=== PATIENT | female | born 1940 | race Caucasian/White ===

== ENCOUNTER → 2016-10-13 | Outpatient (CLI) | payer OTHER ==
[~2016-10-13] MED LIST: ATOR10TA82 PO; BACL10TA PO; BUPR100T8 PO; NAPR1TAB9 PO; SERT-234 PO; TRAZ-120 PO
[2016-10-13 17:06] LABS: BASO % 0.8 %; BASO ABS # 0.07 K/uL (0-0.2); COMPLETE YES; EOS % 3.7 %; HEMATOCRIT 41.6 % (37-47); IG% 0.4 %; LYMPH % 17.5 %; LYMPH ABS # 1.48 K/uL (1.2-3.4); MEAN CELL VOLUME 92.7 fL (80-100); MEAN CORPUSCULAR HEMOGLOBIN 29.4 pg (25-34); MEAN CORPUSCULAR HGB CONC 31.7 g/dl (32-36); MEAN PLATELET VOLUME 9.9 fL (7.4-10.4); MONO % 10.5 %; NEUT % 67.1 %; PLATELET COUNT 305 K/uL (130-400); RED BLOOD COUNT 4.49 M/uL (4.2-5.4); WHITE BLOOD COUNT 8.48 K/uL (4.8-10.8)
[2016-10-13 17:32] LABS: ALT/SGPT 28 U/L (12-78); AST/SGOT 20 U/L (15-37); BLOOD UREA NITROGEN 14 mg/dl (7-18); BUN/CREATININE RATIO 17.2 (10-20); CALCIUM 8.6 mg/dl (8.5-10.1); CARBON DIOXIDE 31 mmol/L (21-32); CHLORIDE 104 mmol/L (98-107); CHOLESTEROL 198 mg/dl (0-200); CREATININE 0.81 mg/dl (0.60-1.20); GLUCOSE 110 mg/dl (70-99); POTASSIUM 4.1 mmol/L (3.5-5.1); SODIUM 142 mmol/L (136-145)
[2016-10-13 17:43] LABS: ALB/GLOB RATIO 1.4 (0.9-2); ALKALINE PHOSPHATASE 69 U/L (45-117); CHOLESTEROL/HDL RATIO 2.2; HDL CHOLESTEROL 91 mg/dl; LDL CHOLESTEROL CALCULATED 75 mg/dl; TRIGLYCERIDES 158 mg/dl (0-150); VERY LOW DENSITY LIPOPROT CALC 32 mg/dl
--- NOTE | 2016-10-21 12:40 | CODING QUERY MEDICAL NECESSITY ---
CQSUPPORTING DIAGNOSIS NEEDED A supporting diagnosis is required for the test/procedure performed on this patient in order for us to be reimbursed by the patient's insurance. Please provide a supporting diagnosis for the following test/procedure listed below next to the test name along with your signature. *If there is no additional diagnosis for this patient that would support the following test/procedure please document that below next to the test/procedure. Test(s)/Procedure(s) that require a supporting diagnosis: DOS 10/13/16 VITAMIN D VITAMIN B12 ORDER BY KARISHMA HUSSEIN Provider Signature: Date: Thank you Maegan Buckner Health Information Management Once completed, please kindly fax back to [phone] For questions please call [phone]
== END | disposition home or self-care (01) ==
LOC: C.LABBC 15:25
PROVIDERS: ATTEND Physician Assistant Medical
DX: Z00.00 Encounter for general adult medical examination without abnormal findings (principal); R53.83 Other fatigue; E55.9 Vitamin D deficiency, unspecified; R20.0 Anesthesia of skin

== ENCOUNTER → 2017-09-13 | Outpatient (CLI) | payer OTHER ==
[2017-09-13 19:18] LABS: ALT/SGPT 22 U/L (12-78); AST/SGOT 21 U/L (15-37); BLOOD UREA NITROGEN 20 mg/dl (7-18); CALCIUM 8.6 mg/dl (8.5-10.1); CARBON DIOXIDE 30 mmol/L (21-32); CREATININE 0.89 mg/dl (0.60-1.20); GLUCOSE 76 mg/dl (70-99); POTASSIUM 4.3 mmol/L (3.5-5.1); SODIUM 139 mmol/L (136-145)
[2017-09-13 19:28] LABS: ALKALINE PHOSPHATASE 71 U/L (45-117); TOTAL PROTEIN 7.1 gm/dl (6.4-8.2)
[2017-09-14 06:36] LABS: HEMOGLOBIN A1C 5.5 % (4.5-5.6)
== END | disposition home or self-care (01) ==
LOC: C.LABBC 14:07
PROVIDERS: ATTEND Physician Assistant Medical
DX: E78.5 Hyperlipidemia, unspecified (principal); R73.9 Hyperglycemia, unspecified; G47.00 Insomnia, unspecified; R27.0 Ataxia, unspecified; G11.9 Hereditary ataxia, unspecified; E55.9 Vitamin D deficiency, unspecified

== ENCOUNTER → 2017-09-13 | Outpatient (CLI) | payer OTHER | END | disposition home or self-care (01) | LOC: C.MAMM 13:14 | PROVIDERS: ATTEND Physician Assistant Medical | DX: M85.839 Other specified disorders of bone density and structure, unspecified forearm (principal) ==

== ENCOUNTER 2025-01-11 14:48 | Inpatient (IN) ==
[2025-01-11] MEDS ORDERED: HYDROmorphone INJ 0.5 MG/0.5 ML SYR IV PRN (17:52)
[2025-01-11] MEDS ORDERED: ONDANSETRON INJ 2 MG/ML 2 ML VIAL IV PRN (18:25)
[2025-01-11] MEDS ORDERED: ACETAMINOPHEN 325 MG TAB PO PRN (18:25)
[2025-01-11] MEDS ORDERED: ALUMINUM/MAGNESIUM SUSP 30 ML UDC PO PRN (18:25)
[2025-01-11] MEDS ORDERED: MAGNESIUM HYDROXIDE SUSP 30 ML UDC PO PRN (18:25)
[2025-01-11] MEDS ORDERED: ALBUTEROL HFA 8 GM INHALER INH PRN (18:28)
[2025-01-11] MEDS ORDERED: CYCLOBENZAPRINE HCL 5 MG TAB PO PRN (18:28)
--- NOTE | 2025-01-11 18:38 | History & Physical Report ---
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 Planned for revision tomorrow AM by Dr. Azar. # Dislocation of L knee hx remote TKA -NWB LLE -pain control low dose IV hydromorphone, low dose oxycodone, acetaminophen, cyclobenzaprine PRN -consult ortho Dr. Azar, plans OR in AM for TKA revision -SCD for DVT ppx -NPO after Mn -preop labs: CBC, BMP, PT/INR. Obtain EKG # mild CAD with recent NSTEMI and trigger not clear. Potentially myocardial demand ischemia related to pulmonary issue? Had COVID about a month prior to that. Fortunately she recently had thorough cardiac evaluation for an NSTEMI a few weeks ago. Echo with normal EF, no rwmas. Had coronary angiography with only mild nonobstructive CAD. This is all reassuring. She did have a brief chest pain episode at home two days ago after the knee injury that does not sound very suspicious for angina. It occurred at rest and could have been gastrointestinal in origin. I see no medical contraindications to proceeding with planned urgent surgery to repair dislocated knee. -EKG as above -continue statin -she says she is not on an antiplatelet but according to DC summary from [facility] she should be on daily ASA 81 mg - ordered this to continue # mild persistent asthma / chronic cough -not in exacerbation -continue trelegy equivalent and prn albuterol -[facility] CXR noted increased interstitial markings. Crackles on exam and could have ILD. Try to obtain report of CTA done in ED last month. # cerebrovascular disease -continue statin, ASA # chronic hypotension - continue midodrine # mood disorder - depression. Stable -continue venlafaxine, aripiprazole, bupropion, trazodone # ABDIRASHID intolerant of CPAP - caution with sedating medications especially opioids DVT ppx - SCD tonight, postop per ortho Admission and Anticipated Discharge Date Admission Date: January 11, 2025 History of Present Illness Chief Complaint: L knee pain Primary Care Provider: Clara Hairstno PA-C 84 y/o with L TKA at least six years ago. Two days ago was sitting in her recliner chair cleaning up some things on nearby tables, rolled to right seated in recliner and felt L knee pop. L knee has been extremely painful since and unable to ambulate. Sounds like she was seen in an ED yesterday and knee immobilizer was placed. Saw ortho Dr. Azar in office this AM. Found to have dislocation of L TKA. Direct admission, planned for revision tomorrow AM. She has chronic cough, reviewed last pulmonary note by Dr. Romero in 2022. He states she has had normal PFTs and that its upper airway cough syndrome. She sa ys that she subsequently had removal of some vocal chord nodules apx two years ago. Chronic cough continues. She is on inhalers for mild asthma and symptoms are at her baseline. She has had esophageal motility problems and dysphagia, had Schatzki's ring dilated here on EGD in October. Sometimes difficulty with certain pills. I also reviewed scanned records from [facility]: A month ago she presented to ED with cough and dyspnea and found to have NSTEMI. Tn increased to max of 600s. No EKG changes. CTA was negative for PE. She was started on heparin drip and transferred to [facility]. She had Echo with normal EF 65-70% and no rwma's. She underwent coronary angiography on 12/25. I reviewed the cath report and she had mild nonobstructive diffuse CAD, no PCI was necessary. The most significant lesion was prox RCA of 40% and she had a normal LVEDP. She is quite sedentary currently. She had an episode of about 10 minutes of chest pain that radiated to throat and shoulders the other day, after the knee injury. She never had chest pain before or since. Allergies Allergy/AdvReac Type Severity Reaction Status Date / Time erythromycin base Allergy Unknown Rash - pt Verified 12/08/24 15:09 denies sulfamethoxazole Allergy Unknown Rash - pt Verified 12/08/24 15:09 [From Bactrim] denies trimethoprim [From Bactrim] Allergy Unknown Rash - pt Verified 12/08/24 15:09 denies gabapentin AdvReac Mild Dizziness Verified 12/08/24 15:09 Home Medications Medication Instructions Recorded Confirmed Type multivitamin (Daily Multi-Vitamin 1 tab PO HS 02/01/19 12/08/24 History tablet) cholecalciferol (vitamin D3) 50 1,000 units PO HS 10/30/19 12/08/24 History mcg (2,000 unit) tablet Flutter Valve #1 ea 08/29/21 12/08/24 Rx trazodone 100 mg tablet 100 mg PO HS 03/19/23 12/08/24 History venlafaxine 150 mg 150 mg PO QAM 03/19/23 12/08/24 History capsule,extended release 24 hr midodrine 2.5 mg tablet 2.5 mg PO TID 02/02/24 12/08/24 History pantoprazole 20 mg tablet,delayed 20 mg PO BID #90 tabs 09/22/24 12/08/24 Rx release acetaminophen 500 mg tablet 1,000 mg PO Q6H PRN pain/fever 09/29/24 12/08/24 History albuterol sulfate 90 mcg/actuation 2 inh inhalation Q6H PRN 09/29/24 12/08/24 History aerosol inhaler sob/wheezing aripiprazole 2 mg tablet 2 mg PO QAM 09/29/24 12/08/24 History calcium carbonate (Calcium 600) 600 mg PO HS 09/29/24 12/08/24 History cetirizine 10 mg tablet 10 mg PO QAM 09/29/24 12/08/24 History cyclobenzaprine 5 mg tablet 5 mg PO BID PRN Spasms 09/29/24 12/08/24 History ferrous sulfate 325 mg (65 mg 325 mg PO BID 09/29/24 12/08/24 History iron) tablet lidocaine 4 % topical patch 1 patch topical DAILY PRN Pain 09/29/24 12/08/24 History thiamine HCl (vitamin B1) 100 mg 100 mg PO QAM 09/29/24 12/08/24 History tablet tramadol 50 mg tablet 50 mg PO Q8H PRN Pain 09/29/24 12/08/24 History triamcinolone acetonide 0.1 % 1 applic topical BID PRN erythema 09/29/24 12/08/24 History topical cream atorvastatin 10 mg tablet 10 mg PO HS 10/13/24 12/08/24 History bupropion HCl 100 mg tablet,12 hr 100 mg PO HS 10/13/24 12/08/24 History sustained-release midodrine 5 mg tablet 5 mg PO TID 10/13/24 12/08/24 History fluticasone fur. 100 mcg-umeclid 1 inh inhalation DAILY #28 ea 12/08/24 12/08/24 Rx 62.5 mcg-vilant 25 mcg inhalat.powder (Trelegy Ellipta) meloxicam 7.5 mg tablet 7.5 mg PO DAILY #30 tabs 12/08/24 12/08/24 Rx Past Med/Surg History Problem List (Updated 01/11/25 @ 18:33 by Mona Guillaume MD) Mood disorder Knee dislocation Esophageal dysphagia Black stool Esophageal dysmotility Inversion sprain of left ankle Sprain of ankle, left Dysphagia History of rib fracture (08/29/21) left anterior 7th, 8th, and 9th rib fractures Carotid bruit Cerebrovascular disease Traumatic ecchymosis of spine Hematoma of left chest wall Falls frequently Sleep apnea Snoring Spinal stenosis, lumbar Chronic pain 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 (Acute) Cervical disc disorder with radiculopathy, unspecified cervical region (Acute) Chronic cerebral ischemia (Acute) Generalized osteoarthritis of multiple sites (Acute) Hyperglycemia (Acute) Insomnia (Acute) Lumbar radiculopathy (Acute) Microscopic hematuria (Acute) Mild persistent asthma (Acute) Osteopenia of left femoral neck (Acute) Osteopenia of left forearm (Acute) Peripheral neuropathy (Acute) Sensory ataxia (Acute) Vitamin D deficiency (Acute) Thoracic kyphosis Depression (Chronic) Dyslipidemia (Chronic) Medical History History of COVID-19 pt is unsure exact date of positive covid test (states at least 6 weeks ago -- ~mid/end august 2024 while still living at [facility]. reports she had a cough, headache and low grade fever. still has ongoing cough. following with [facility] physician, started on albuterol prn. last used inhaler 10/11/24 due to a "coughing fit and wheezing" resolved with the albuterol. Hx of vertigo Hypotension Cerebellar ataxia per medical record - pt denies. denies any memory loss, can be "forgetful at times" History of suicidal ideation hx - pt denies current ideations Hx of basal cell carcinoma Spinal stenosis Sleep apnea unable to tolerate machine. Peripheral neuropathy per medical record, pt denies Mild persistent asthma per medical record - pt denies. Dysphagia reason for the procedure History of closed head injury treated at [facility] emergency room after a fall getting out the of the shower, had a laceration on her head, no concussion. doing well currently. Chronic fatigue Former smoker Chronic cough since having covid-19 in August 2024. following with [facility] physician, started on albuterol prn. last used inhaler 10/11/24 due to a "coughing fit and wheezing" resolved with the albuterol. pt is unsure exact date of positive covid test (states at least 6 weeks ago -- ~mid/end august 2024). Depression Anxiety Osteoarthritis Chronic neck pain Degenerative disc disease Chronic back pain Osteopenia Surgical History Hx of basal cell carcinoma excision S/P epidural steroid injection History of surgery Direct microlaryngoscopy with left true vocal fold lesion biopsy-04/14/19-Dr. 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) History of tonsillectomy History of appendectomy History of colonoscopy S/P total hysterectomy History of dilatation and curettage S/P arthroscopy of shoulder right Status post left partial knee replacement History of total right knee replacement History of cataract surgery bilateral History of back surgery (~1999) lumbar Hx of cervical spine surgery "repaired 4 levels" Full ROM Family History Father Heart disease Myocardial infarction Rheumatic heart disease Cancer Head and neck Sister Osteoporosis Heart disease Hyperlipidemia Myocardial infarction Breast cancer Rheumatic heart disease Stroke Brother Alcohol abuse Heart disease Myocardial infarction Mother Ovarian cancer Lung cancer smoker Son Hearing loss Other Emphysema of lung Lung disease No family history of adverse response to anesthesia Social History Smoking Status: Former smoker Tobacco Type: Cigarettes Age Started Using Tobacco: 19; Age Quit Using Tobacco: 54; packs per day: 0.5; Cigarettes Per Day: 10 CIGS DAILY X 25 YEARS; Second Hand Exposure: No; Do You Dip or Chew Tobacco: No; Tobacco Cessation Education Requested by Patient: No Hx Alcohol Use: Yes Alcohol type: wine Alcohol Intake Frequency Comment: 1-2 drinks per day Hx Substance Use: No Preferred Language: Peruvian Communication Ability: Effective Visual Impairment: Limited Hearing Ability: Normal Gate Watch Required: No Beliefs That Will Affect Care: None marital status: Current Living Situation: Spouse and Personal Care Facility Current Living Situation Comment: [facility] current occupational status: retired Other Information That Helps Us Care for You: No Feels Safe at Home: Yes Safety Concerns: Feels Safe At This Time Childhood Exposure to Second-Hand Smoke: Yes caffeine: Yes Dental Care, Regularly: Yes Physical Activity Frequency: 3-4 Times per Week Seatbelt Use: always Sunscreen Use: Yes Assistive Devices: None and Brace/Splint/Immobilizer Assistive Devices Comment: Left Knee Review of Systems Review of Systems: All systems reviewed & are unremarkable except as noted in HPI & below Physical Exam Physical Exam: Last 24h vitals reviewed GEN: no acute distress, sitting in bed HEENT: pupils equal, sclerae anicteric, moist MM RESP: normal WOB, significant kyphosis, posterior crackles CV: reg no mrg ABD: soft/nt/nd +BT : no dupree SKIN: warm and dry, no generalized rashes EXT: wwp and no edema. L leg is in immobilizer splint NEURO: AOx person, place, and situation though mixes up a few recent details. Face symmetric, speech normal, moves 4 ext spontaneously and equally Results & Data Results & Data Vital Signs (Past 12 Hours) Vital Signs Temp Pulse Resp BP Pulse Ox O2 Del Method 01/11/25 17:26 36.5 C 83 18 135/74 93 Room Air 01/11/25 16:00 Room Air Laboratory Results pending ECG Additional Comments: pending Code Status & VTE Plan VTE Prophylaxis Plan VTE Prophylaxis will be ordered: Yes PG Care Time/CCT Total # of Minutes Spent Total Time Spent with Patient: Total time spent is greater than 50% in coordination of care (as documented) at patient's floor/unit and/or counseling patient: Coding Level of Care Code 85639 INT INP/OBS CARE 3/75MIN Diagnoses Knee dislocation S83.106A Esophageal dysmotility K22.4 Cerebrovascular disease I67.9 Sleep apnea G47.30 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
[2025-01-11 20:08] LABS: Hematocrit (blood only) 38.5 % (37.0-47.0); Hemoglobin 12.6 g/dl (12.0-16.0); Mean Corpuscular Hemoglobin 30.1 pg (25.0-34.0); Mean Corpuscular Volume 92.1 fL (80.0-100.0); Platelet Count 219 K/uL (130-400); RDW Standard Deviation 44.7 fL (36.4-46.3); Red Blood Count 4.18 M/uL (4.20-5.40); White Blood Count 10.69 K/ul (4.8-10.8)
[2025-01-11 20:23] LABS: Anion Gap 5 (3-11); Blood Urea Nitrogen 22 mg/dl (6-23); Calcium 8.9 mg/dl (8.6-10.3); Carbon Dioxide 27 mmol/L (21-32); Chloride 108 mmol/L (98-107); Glucose 118 mg/dl (70-99(Fasting)); Potassium 4.3 mmol/L (3.5-5.1); Sodium 140 mmol/L (136-145)
[2025-01-11 20:34] LABS: INR 1.0 (0.9-1.1); Partial Thromboplastin Time 27 Seconds (21-31); Prothrombin Time 11.1 Seconds (9.0-12.0)
[2025-01-11] MEDS ORDERED: MIDODRINE HCL 2.5 MG TAB PO SCH (21:00)
[2025-01-11] MEDS: MELATONIN 3 MG TAB PO PRN (21:53)
[2025-01-11] MEDS: MIDODRINE HCL 2.5 MG TAB PO SCH (21:55)
[2025-01-11] MEDS: ATORVASTATIN 10 MG TAB PO SCH (21:55)
[2025-01-12] MEDS ORDERED: ROPIVACAINE 0.5% 5 MG/ML 30 ML VIAL ONE (06:33)
[2025-01-12] MEDS ORDERED: BUPIVACAINE 0.5 % 5 MG/1 ML PF 10ML VIAL ONE (06:33)
[2025-01-12] MEDS ORDERED: EPINEPHrine INJ 1 MG/ML AMP ONE (06:34)
[2025-01-12] MEDS: VENLAFAXINE HCL XR 150 MG CAPXR PO SCH (08:17)
[2025-01-12] MEDS: FLUTICASONE FUROATE 100MCG 14 PUFFS/INHALER INH SCH (08:18)
[2025-01-12] MEDS: UMECLIDINIUM/VILANTEROL 62.5/25MCG 7 PUFFS/INHALER INH SCH (08:18)
--- NOTE | 2025-01-12 08:49 | Orthopedic Consultation ---
Date of Service January 12, 2025 Assessment & Plan (1) Prosthetic knee implant failure: * Case/imaging reviewed and discussed with Dr Azar * Recommend OR today for revision total knee arthroplasty * Weight bearing status: NWB pre-op * Maintain knee immobilizer * NPO for OR today * Pain control * Disposition: TBD * Remainder care per primary team * Will continue to follow History of Present Illness Reason for Consultation: Left knee pain Requesting Physician: . Attending Physician: Mona Guillaume MD .Patient is a 84y/o female with left knee pain. PMH including cerebellar ataxia secondary to alcohol, anxiety, asthma. Well-known to orthopedic team with surgical history including right total knee and left partial knee replacements. He saw Dr. Azar in office yesterday secondary to left knee pain ongoing for approximately 2 days, reports she was working in her house when she twisted the knee and felt a pop and has had persistent knee pain and difficulty ambulating since. Office examination and imaging findings consistent with displaced polyethylene liner. Direct admission to hospital yesterday for planned revision knee arthroplasty today with Dr. Azar. At time of exam patient lying comfortably in bed, no acute distress. Knee immobilizer in place. Denies tingling or numbness of the left lower extremity. Allergies Allergy/AdvReac Type Severity Reaction Status Date / Time erythromycin base Allergy Unknown Rash - pt Verified 12/08/24 15:09 denies sulfamethoxazole Allergy Unknown Rash - pt Verified 12/08/24 15:09 [From Bactrim] denies trimethoprim [From Bactrim] Allergy Unknown Rash - pt Verified 12/08/24 15:09 denies gabapentin AdvReac Mild Dizziness Verified 12/08/24 15:09 Home Medications Medication Instructions Recorded Confirmed Type multivitamin (Daily Multi-Vitamin 1 tab PO HS 02/01/19 12/08/24 History tablet) cholecalciferol (vitamin D3) 50 1,000 units PO HS 10/30/19 12/08/24 History mcg (2,000 unit) tablet Flutter Valve #1 ea 08/29/21 12/08/24 Rx trazodone 100 mg tablet 100 mg PO HS 03/19/23 12/08/24 History venlafaxine 150 mg 150 mg PO QAM 03/19/23 12/08/24 History capsule,extended release 24 hr midodrine 2.5 mg tablet 2.5 mg PO TID 02/02/24 12/08/24 History pantoprazole 20 mg tablet,delayed 20 mg PO BID #90 tabs 09/22/24 12/08/24 Rx release acetaminophen 500 mg tablet 1,000 mg PO Q6H PRN pain/fever 09/29/24 12/08/24 History albuterol sulfate 90 mcg/actuation 2 inh inhalation Q6H PRN 09/29/24 12/08/24 History aerosol inhaler sob/wheezing aripiprazole 2 mg tablet 2 mg PO QAM 09/29/24 12/08/24 History calcium carbonate (Calcium 600) 600 mg PO HS 09/29/24 12/08/24 History cetirizine 10 mg tablet 10 mg PO QAM 09/29/24 12/08/24 History cyclobenzaprine 5 mg tablet 5 mg PO BID PRN Spasms 09/29/24 12/08/24 History ferrous sulfate 325 mg (65 mg 325 mg PO BID 09/29/24 12/08/24 History iron) tablet lidocaine 4 % topical patch 1 patch topical DAILY PRN Pain 09/29/24 12/08/24 History thiamine HCl (vitamin B1) 100 mg 100 mg PO QAM 09/29/24 12/08/24 History tablet tramadol 50 mg tablet 50 mg PO Q8H PRN Pain 09/29/24 12/08/24 History triamcinolone acetonide 0.1 % 1 applic topical BID PRN erythema 09/29/24 12/08/24 History topical cream atorvastatin 10 mg tablet 10 mg PO HS 10/13/24 12/08/24 History bupropion HCl 100 mg tablet,12 hr 100 mg PO HS 10/13/24 12/08/24 History sustained-release midodrine 5 mg tablet 5 mg PO TID 10/13/24 12/08/24 History fluticasone fur. 100 mcg-umeclid 1 inh inhalation DAILY #28 ea 12/08/24 12/08/24 Rx 62.5 mcg-vilant 25 mcg inhalat.powder (Trelegy Ellipta) meloxicam 7.5 mg tablet 7.5 mg PO DAILY #30 tabs 12/08/24 12/08/24 Rx Past Med/Surg History Problem List (Updated 01/12/25 @ 08:48 by Curt Ruvalcaba PA-C) Prosthetic knee implant failure Mood disorder Knee dislocation Esophageal dysphagia Black stool Esophageal dysmotility Inversion sprain of left ankle Sprain of ankle, left Dysphagia History of rib fracture (08/29/21) left anterior 7th, 8th, and 9th rib fractures Carotid bruit Cerebrovascular disease Traumatic ecchymosis of spine Hematoma of left chest wall Falls frequently Sleep apnea Snoring Spinal stenosis, lumbar Chronic pain 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 (Acute) Cervical disc disorder with radiculopathy, unspecified cervical region (Acute) Chronic cerebral ischemia (Acute) Generalized osteoarthritis of multiple sites (Acute) Hyperglycemia (Acute) Insomnia (Acute) Lumbar radiculopathy (Acute) Microscopic hematuria (Acute) Mild persistent asthma (Acute) Osteopenia of left femoral neck (Acute) Osteopenia of left forearm (Acute) Peripheral neuropathy (Acute) Sensory ataxia (Acute) Vitamin D deficiency (Acute) Thoracic kyphosis Depression (Chronic) Dyslipidemia (Chronic) Medical History History of COVID-19 pt is unsure exact date of positive covid test (states at least 6 weeks ago -- ~mid/end august 2024 while still living at [facility]. r eports she had a cough, headache and low grade fever. still has ongoing cough. following with [facility] physician, started on albuterol prn. last used inhaler 10/11/24 due to a "coughing fit and wheezing" resolved with the albuterol. Hx of vertigo Hypotension Cerebellar ataxia per medical record - pt denies. denies any memory loss, can be "forgetful at times" History of suicidal ideation hx - pt denies current ideations Hx of basal cell carcinoma Spinal stenosis Sleep apnea unable to tolerate machine. Peripheral neuropathy per medical record, pt denies Mild persistent asthma per medical record - pt denies. Dysphagia reason for the procedure History of closed head injury treated at [facility] emergency room after a fall getting out the of the shower, had a laceration on her head, no concussion. doing well currently. Chronic fatigue Former smoker Chronic cough since having covid-19 in August 2024. following with [facility] physician, started on albuterol prn. last used inhaler 10/11/24 due to a "coughing fit and wheezing" resolved with the albuterol. pt is unsure exact date of positive covid test (states at least 6 weeks ago -- ~mid/end august 2024). Depression Anxiety Osteoarthritis Chronic neck pain Degenerative disc disease Chronic back pain Osteopenia Surgical History Hx of basal cell carcinoma excision S/P epidural steroid injection History of surgery Direct microlaryngoscopy with left true vocal fold lesion biopsy-04/14/19-Dr. 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) History of tonsillectomy History of appendectomy History of colonoscopy S/P total hysterectomy History of dilatation and curettage S/P arthroscopy of shoulder right Status post left partial knee replacement History of total right knee replacement History of cataract surgery bilateral History of back surgery (~1999) lumbar Hx of cervical spine surgery "repaired 4 levels" Full ROM Family History Father Heart disease Myocardial infarction Rheumatic heart disease Cancer Head and neck Sister Osteoporosis Heart disease Hyperlipidemia Myocardial infarction Breast cancer Rheumatic heart disease Stroke Brother Alcohol abuse Heart disease Myocardial infarction Mother Ovarian cancer Lung cancer smoker Son Hearing loss Other Emphysema of lung Lung disease No family history of adverse response to anesthesia Social History Smoking Status: Former smoker Tobacco Type: Cigarettes Age Started Using Tobacco: 19; Age Quit Using Tobacco: 54; packs per day: 0.5; Cigarettes Per Day: 10 CIGS DAILY X 25 YEARS; Second Hand Exposure: No; Do You Dip or Chew Tobacco: No; Tobacco Cessation Education Requested by Patient: No Hx Alcohol Use: Yes Alcohol type: wine Alcohol Intake Frequency Comment: 1-2 drinks per day Hx Substance Use: No Preferred Language: Mongolian Communication Ability: Effective Visual Impairment: Limited Hearing Ability: Normal Vegetable Trimmer Required: No Beliefs That Will Affect Care: None marital status: Current Living Situation: Spouse and Personal Care Facility Current Living Situation Comment: [facility] current occupational status: retired Other Information That Helps Us Care for You: No Feels Safe at Home: Yes Safety Concerns: Feels Safe At This Time Childhood Exposure to Second-Hand Smoke: Yes caffeine: Yes Dental Care, Regularly: Yes Physical Activity Frequency: 3-4 Times per Week Seatbelt Use: always Sunscreen Use: Yes Assistive Devices: None and Brace/Splint/Immobilizer Assistive Devices Comment: Left Knee Review of Systems All systems reviewed & are unremarkable except as noted in HPI & below. Physical Exam . * General: Alert and oriented, no acute distress * Constitutional: well-developed, well-nourished. * Respiratory: Normal respiratory effort, no distress * Gastrointestinal: No tenderness to palpation, no rigidity or guarding. * Skin: No rash or lesion. * Neurologic: Grossly normal * Musculoskeletal: Left knee knee immobilizer in place, removed for exam. Well- healed arthroplasty, otherwise no overlying skin abnormalities incision. TTP diffusely medial knee joint line, anterior knee region, distal thigh. Otherwise no tenderness of the proximal thigh, lower leg, foot/ankle. ROM knee not assessed. AROM foot/ankle intact. Sensation intact plantar/dorsal foot. Brisk capillary refill. Results & Data Results & Data Laboratory Results . Diagnostic Findings . PG Care Time/CCT Total # of Minutes Spent Total Time Spent with Patient: Total time spent is greater than 50% in coordination of care (as documented) at patient's floor/unit and/or counseling patient: Coding [place] [address] IN/OBS CONSULT LVL 5,80M Patient Type Established History Problem Focused Exam Problem Focused Medical Decision Making High Complexity Diagnoses Prosthetic knee implant failure T84.018A; Z96.659
--- NOTE | 2025-01-12 11:17 | History & Physical Bridge Note ---
Date of Service January 12, 2025 History & Physical Bridge Note I have examined the patient, reviewed the History & Physical and in the interval since the performance of the History & Physical I have noted the following changes of clinical significance: no changes noted
[2025-01-12] MEDS: HYDROmorphone INJ 0.5 MG/0.5 ML SYR IV PRN (12:09)
[2025-01-12] MEDS ORDERED: PROPOFOL IV EMULSION 10 MG/ML 100 ML VIAL IV ONE (12:30)
[2025-01-12] MEDS ORDERED: ONDANSETRON INJ 2 MG/ML 2 ML VIAL ONE (12:30)
[2025-01-12] MEDS: LACTATED RINGER'S 1,000 ML IV SCH (12:49)
[2025-01-12] MEDS ORDERED: MIDAZOLAM HCL 1 MG/ML 2ML VIAL ONE (12:54)
--- NOTE | 2025-01-12 13:00 | Anesthesiology Consultation ---
Date of Service January 12, 2025 Assessment & Plan Chart Review Chart Review: Acceptable Risk for Surgery and Patient NOT seen in Pre Admission Testing Consults Requested none ASA ASA3 Proposed Anesthesia Anesthesia Type: General Regional Regional Laterality: Left Site: Adductor Canal Risk / Benefits Reviewed With: PT / POA / Parent / Guardian, Accepts Plan and Informed Consent Obtained History Surgery Operation Date: 01/12/25 12:30 Proposed Procedures p Left Total Knee Revision - Sukh Azar MD Height/Weight Height: 5 ft Weight: 50 kg Allergies Allergy/AdvReac Type Severity Reaction Status Date / Time erythromycin base Allergy Unknown Rash - pt Verified 01/12/25 12:31 denies sulfamethoxazole Allergy Unknown Rash - pt Verified 01/12/25 12: [From Bactrim] denies trimethoprim [From Bactrim] Allergy Unknown Rash - pt Verified 01/12/25 12: denies gabapentin AdvReac Mild Dizziness Verified 01/12/25 12:31 Medications Home Medications Medication Instructions Recorded Confirmed Last Taken cholecalciferol (vitamin D3) 50 1,000 units PO HS 10/30/19 01/12/25 10/17/24 mcg (2,000 unit) tablet Flutter Valve #1 ea 08/29/21 12/08/24 Unknown trazodone 100 mg tablet 100 mg PO 03/19/23 01/12/25 10/17/24 venlafaxine 150 mg 150 mg PO QAM 03/19/23 01/12/25 10/17/24 capsule,extended release 24 hr midodrine 2.5 mg tablet 2.5 mg PO TID 02/02/24 01/12/25 10/17/24 pantoprazole 20 mg tablet,delayed 20 mg PO BID #90 tabs 09/22/24 01/12/25 10/17/24 release acetaminophen 500 mg tablet 1,000 mg PO Q6H PRN pain/fever 09/29/24 01/12/25 Unknown albuterol sulfate 90 mcg/actuation 2 inh inhalation Q6H PRN 09/29/24 01/12/25 Unknown aerosol inhaler sob/wheezing aripiprazole 2 mg tablet 2 mg PO QAM 09/29/24 01/12/25 10/17/24 calcium carbonate (Calcium 600) 600 mg PO HS 09/29/24 01/12/25 10/17/24 cetirizine 10 mg tablet 10 mg PO QAM 09/29/24 01/12/25 10/17/24 ferrous sulfate 325 mg (65 mg 325 mg PO BID 09/29/24 01/12/25 10/17/24 iron) tablet thiamine HCl (vitamin B1) 100 mg 100 mg PO QAM 09/29/24 01/12/25 10/17/24 tablet tramadol 50 mg tablet 50 mg PO Q8H PRN Pain 09/29/24 01/12/25 Unknown triamcinolone acetonide 0.1 % 1 applic topical BID PRN erythema 09/29/24 01/12/25 Unknown topical cream atorvastatin 10 mg tablet 10 mg PO HS 10/13/24 01/12/25 10/17/24 bupropion HCl 100 mg tablet,12 hr 100 mg PO HS 10/13/24 01/12/25 10/17/24 sustained-release midodrine 5 mg tablet 5 mg PO TID 10/13/24 01/12/25 10/17/24 fluticasone fur. 100 mcg-umeclid 1 inh inhalation DAILY #28 ea 12/08/24 01/12/25 Unknown 62.5 mcg-vilant 25 mcg inhalat.powder (Trelegy Ellipta) aspirin 81 mg tablet,delayed 81 mg PO DAILY 01/12/25 01/12/25 Unknown release multivitamin (Daily-Jorgito tablet) 1 tab PO DAILY 01/12/25 01/12/25 Unknown Active Medications Generic Name Dose Route Start Last Admin Trade Name Freq PRN Reason Stop Dose Admin Aripiprazole 2 mg 01/12/25 09:00 01/12/25 08:17 Aripiprazole 2 Mg Tab PO 02/11/25 08:59 2 mg QAM EWA Administration Atorvastatin Calcium 10 mg 01/11/25 21:00 01/11/25 21:55 Atorvastatin 10 Mg Tab PO 02/10/25 20:59 10 mg HS EWA Administration Bupropion HCl 100 mg 01/11/25 21:00 01/11/25 21:55 Bupropion Sr 100 Mg Tabcr PO 02/10/25 20:59 100 mg HS EWA Administration Fluticasone Furoate 1 puffs 01/12/25 09:00 01/12/25 08:18 Fluticasone Furoate 100mcg 14 Puffs/Inhaler INH 02/11/25 08:59 1 puffs DAILY EWA Administration Hydromorphone HCl 0.25 mg 01/11/25 19:14 01/12/25 12:09 Hydromorphone Inj 0.5 Mg/0.5 Ml Syr IV 01/25/25 17:51 0.25 mg Q4H PRN Administration Severe Pain (Scale 7, 8, 9,10) Lactated Ringer's 1,000 mls @ 15 mls/hr 01/12/25 12:45 01/12/25 12:49 Lr IV 01/15/25 12:44 15 mls/hr .Q24H EWA Administration Melatonin 3 mg 01/11/25 18:25 01/11/25 21:53 Melatonin 3 Mg Tab PO 02/10/25 18:24 3 mg HS PRN Administration Insomnia Midodrine 7.5 mg 01/11/25 21:00 01/12/25 08:16 Midodrine Hcl 2.5 Mg Tab PO 02/10/25 20:59 7.5 mg TID EAW Administration Pantoprazole Sodium 40 mg 01/12/25 09:00 01/12/25 08:17 Pantoprazole 40 Mg Tab PO 02/11/25 08:59 40 mg QAM EWA Administration Tramadol HCl 50 mg 01/11/25 19:15 01/11/25 21:54 Tramadol Hcl 50 Mg Tablet PO 02/10/25 17:51 50 mg Q4H PRN Administration Mild Pain (Scale 1, 2, 3) Trazodone HCl 100 mg 01/11/25 21:00 01/11/25 21:53 Trazodone Hcl 100 Mg Tab PO 02/10/25 20:59 100 mg HS EWA Administration Umeclidinium/Vilanterol 1 puffs 01/12/25 09:00 01/12/25 08:18 Umeclidinium/Vilanterol 62.5/25mcg 7 Puffs/Inhaler INH 02/11/25 08:59 1 puffs DAILY EWA Administration Venlafaxine HCl 150 mg 01/12/25 09:00 01/12/25 08:17 Venlafaxine Hcl Xr 150 Mg Capxr PO 02/11/25 08:59 150 mg QAM EWA Administration NPO Date Last Intake of Fluids: 01/12/25 Time Last Intake of Fluids: 12:09 Last Intake of Fluids Comment: sip water with pain med Date Last Intake of Solids: 01/11/25 Time Last Intake of Solids: 18:00 Past Medical History Medical History History of COVID-19 pt is unsure exact date of positive covid test (states at least 6 weeks ago -- ~mid/end august 2024 while still living at [facility]. reports she had a cough, headache and low grade fever. still has ongoing cough. following with [facility] physician, started on albuterol prn. last used inhaler 10/11/24 due to a "coughing fit and wheezing" resolved with the albuterol. Hx of vertigo Hypotension Cerebellar ataxia per medical record - pt denies. denies any memory loss, can be "forgetful at times" History of suicidal ideation hx - pt denies current ideations Hx of basal cell carcinoma Spinal stenosis Sleep apnea unable to tolerate machine. Peripheral neuropathy per medical record, pt denies Mild persistent asthma per medical record - pt denies. Dysphagia reason for the procedure History of closed head injury treated at [facility] emergency room after a fall getting out the of the shower, had a laceration on her head, no concussion. doing well currently. Chronic fatigue Former smoker Chronic cough since having covid-19 in August 2024. following with [facility] physician, started on albuterol prn. last used inhaler 10/11/24 due to a "coughing fit and wheezing" resolved with the albuterol. pt is unsure exact date of positive covid test (states at least 6 weeks ago -- ~mid/end august 2024). Depression Anxiety Osteoarthritis Chronic neck pain Degenerative disc disease Chronic back pain Osteopenia ASCVD Ao CAD mild disease Exercise / Class Metabolic Activity III < 4 Walking/Shop/Light housework Past Family History Family History Father Heart disease Myocardial infarction Rheumatic heart disease Cancer Head and neck Sister Osteoporosis Heart disease Hyperlipidemia Myocardial infarction Breast cancer Rheumatic heart disease Stroke Brother Alcohol abuse Heart disease Myocardial infarction Mother Ovarian cancer Lung cancer smoker Son Hearing loss Other Emphysema of lung Lung disease No family history of adverse response to anesthesia Past Surgical History Surgical History Hx of basal cell carcinoma excision S/P epidural steroid injection History of surgery Direct microlaryngoscopy with left true vocal fold lesion biopsy-04/14/19-Dr. 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) History of tonsillectomy History of appendectomy History of colonoscopy S/P total hysterectomy History of dilatation and curettage S/P arthroscopy of shoulder right Status post left partial knee replacement History of total right knee replacement History of cataract surgery bilateral History of back surgery (~1999) lumbar Hx of cervical spine surgery "repaired 4 levels" Full ROM Past Anesthesia History No Hx of Anesthesia Complications and No Family Hx of Anesthesia Complications History of PONV No Hx of PONV and No Hx of Motion Sickness Social History Smoking Status: Former smoker tobacco type: cigarettes Smoking cigarettes per day: 10 CIGS DAILY X 25 YEARS Do You Dip or Chew Tobacco: No Hx Alcohol Use: Yes Alcohol type: wine alcohol intake frequency: holidays/special occasions only Hx Substance Use: No substance use type: does not use Physical Exam Vital Signs Last Vital Signs Temp 37 C 01/12/25 12:32 Pulse 85 01/12/25 12:32 Resp 20 01/12/25 12:32 BP 98/56 L 01/12/25 12:32 Pulse Ox 92 01/12/25 12:32 O2 Del Method Room Air 01/12/25 12:32 Constitutional no acute distress and not cachectic ENMT Mouth: no dentition abnormality Thyromental Distance: < 3.5 Finger Breadths Mallampati Class: II Neck normal visual inspection, trachea midline and + limited neck extension Respiratory normal respiratory effort Auscultation: + diminished lung sounds Cardiovascular Rate/Rhythm: regular rate and regular rhythm Heart Sounds: no murmur Vessels: no carotid bruit Musculoskeletal Spine: + scoliosis; normal cervical ROM and no pain with cervical ROM Extremities: + limited ROM of extremities; + extremities abnormal to inspection Neurologic moves all extremities Motor/Sensory: + sensory deficit Psychiatric Orientation: alert and oriented x 3 Testing Laboratory Results 01/11/25 19:52 01/11/25 19:52 PT 11.1 Seconds (9.0-12.0) 01/11/25 19:52 INR 1.0 (0.9-1.1) 09/04/25 19:52 APTT 27 Seconds (21-31) 01/11/25 19:52 Blood Type A Negative 01/12/25 06:52 Antibody Screen NEGATIVE 01/12/25 06:52 Electrocardiogram Date: 01/11/25 Findings: + NSR @ (@ 88;low voltage QRS;) Chest X-Ray Date: 09/29/24 Findings: + NAD, + cardiomegaly and + other (mild scoliosis) Cardiac Catheterization Date: 12/25/24 Findings: + RCA (prox 40%;Mid 30%), + LMA (LAD-mild disease) and + LCX (mild disease); no valve disease Other Testing carotid U/S 09/30/2022-< 50% B/L ICA's
[2025-01-12] MEDS ORDERED: LIDOCAINE 2% 2 ML VIAL/AMP(20MG/ML) INFIL ONE (13:21)
[2025-01-12] MEDS ORDERED: PROPOFOL IV EMULSION 10 MG/ML 20 ML VIAL IV ONE (13:21)
[2025-01-12] MEDS ORDERED: KETAMINE HCL 10MG/ML SYR ONE (14:34)
[2025-01-12] MEDS: ROPIVACAINE 0.5% HCL/PF 246 MG, Ketorolac (*for OR use only*) 30 MG, EPINEPHrine 30MG/3... INFIL SCH (14:41)
[2025-01-12] MEDS: VANCOMYCIN HCL 1000MG/20ML VIAL ONE (14:41)
[2025-01-12] MEDS: TRANEXAMIC ACID / 0.7% NACL 1,000 MG/100 ML BAG IV ONE (15:24)
--- NOTE | 2025-01-12 16:35 | Operative Report ---
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 She underwent a left partial knee replacement 17 years ago. She did quite well and then just 2 days ago she was sitting in Twisted her knee and sustained a torquing motion on it. She had acute onset of pain. She was seen and diagnosed with a polyethylene dislocation radiographically. The patient indicated for revision surgery. We discussed both polyethylene exchange versus conversion to a total knee replacement. C onsidering that she has developed some degree of progressive arthritis in her knee along with her inability to likely tolerate additional surgeries elected to proceed with a full left knee revision in hopes of assuring that she did not need any further surgery on this knee. Description of Procedure Operative implants consist of: 1 Biomet Vanguard size 60 left posterior stabilized femoral component. 2. Biomet size 67 tibial tray with a 10 mm x 80 mm stem extension. 3. 18 mm PS plus polyethylene insert. 4. 28 x 8 all poly patella. Patient was taken operative 5, placed on the operative table in supine position. All contact areas were appropriately padded. IV antibiotics provided by anesthesia team. A general anesthetic was implemented. A Sood catheter was placed in a sterile fashion. Left atrium was then placed. The left lower extremity was then scrubbed with Hibiclens, prepped with ChloraPrep and draped in usual sterile fashion. The left leg was elevated and exsanguinated using an Esmarch and tourniquet placed at 300 mmHg. An anterior approach to the left knee was then performed using a previous incision and extended proximally. Sharp dissection THE subcutaneous tissue down to the extensor mechanism. A medial parapatellar arthrotomy incision made. Dissection was carried out medially. Synovectomy of suprapatellar pouch and medial lateral gutters were performed. Patella was mobilized. Lateral patellofemoral ligament was released. The patella subluxated laterally and the knee was flexed. The posterior distal femur. The ACL PCL and then releasing the distal femur and the tibia subluxated. The tibial tray was then removed. We used a small thin sawblade followed by stacked osteotome technique to remove the tibial tray. It was not loose. The tibial eminence was resected. The cutting guide was placed in the proximal tibial cut was made to MuGard millimeter from the medial side. The tibia was sized to a size 63. The tibial tray was pinned in place. The drill was then 0.3 discrete defect proximal to the tibial tray. I reamed up to a size 12. A 10 mm x 80 mm size 63 tray assembled with a stem. The tray was placed and fit nicely. Attention the femur. The distal femur was sharply opened and intramedullary canal was suctioned to the left 5 the valgus cutting guide was placed. The distal femur cutting block holes/pins were then placed. At that use the small thin sawblade along with a stacked osteotome technique to remove the femoral component. The distal femoral cut was then made. The femur was then sized to a size 60. AP cutting block and pinned parallel to the operative. Anterior, anterior chamfer, posterior, posterior chamfer cuts were made. The box cutting guide was placed and adjustment box Pozniak. Reminyl ER miscarriage size. The osteophytes taken off the posterior aspect femur. I then placed the femoral component. We then trialed the knee and the 18 mm insert. Most appropriate. I did elect to use a PS plus insert just to maximize her stability. Attention drawn to the patella. Soft tissue. Patella thickness measured 20 mm in thickness 12. [id number] 28 patella. The locals were drilled for 28 patella. Lateral x-rays removed. Patella button was placed. Knee was taken through range of motion patella tracked nicely with no Froment's test. Attention turned to placement of the components. All trial components of bone plug was placed to the distal femur limit blood loss. Did also place a bone plug and today.Palacos G cement was mixed with an additional gram of vancomycin. The femoral component was cemented placed followed by the tibial tray. The knee was brought control cement. Final cement check was then performed. Pericapsular tissues were injected with 2 mg of Orthovisc patient did receive 1 g of tranexamic acid. The tourniquet was then let down for total time 83 minutes. Hemostasis assured with electrocautery. Wound was again irrigated extensive [place] closed with combination of PDS suture Vicryl suture to fixate fascia. Extensor mechanism Intact with Subcutaneous Closure to the Suture in a Buried Interrupted Fashion Skin Was Closed Skin Sarah. Leg Was Then Cleaned and Dried and Covered Roger Bandage Were Applied. Patient Then Transferred to Recovery in Stable Condition. Patient Tolerated Suture Well and There Were No Complications. Tor Physician Medical Safety Director, Was Present for the Entire Procedure. Assistance Was Required for Proper Patient Positioning, Prepping and, Surgical Exposure, Ankle Details of the Operation, Placement of Implants, Closure of the Incision Site, Placement of Postoperative Sterile Bandage. I attest to the content of the Intraoperative Record and any orders documented therein. Any exceptions are noted below.
--- NOTE | 2025-01-12 17:10 | Anesthesiology Progress Note ---
Date of Service January 12, 2025 Anesthesia Post Procedure Vital Signs Vital Signs: Temp Pulse Pulse Resp BP Pulse Ox O2 Del Method 01/12/25 17:05 36.4 C L 96 H 18 137/63 96 Nasal Cannula 01/12/25 16:55 96 H 16 138/64 97 Nasal Cannula 01/12/25 16:45 100 H 20 146/68 H 95 Room Air 01/12/25 16:35 99 H 15 111/71 99 Oxymask 01/12/25 16:25 36.7 C 108 H 14 115/96 94 Oxymask 01/12/25 12:32 37 C 85 20 98/56 L 92 Room Air 01/12/25 11:38 36.7 C 81 14 111/62 96 Room Air 01/12/25 07:41 36.7 C 83 14 101/59 L 93 Room Air 01/11/25 22:27 37.1 C 95 H 16 103/59 L 92 Room Air 01/11/25 19:27 Room Air 01/11/25 17:26 36.5 C 83 18 135/74 93 Room Air O2 Flow Rate 01/12/25 17:05 2 01/12/25 16:55 2 01/12/25 16:45 01/12/25 16:35 8 01/12/25 16:25 8 01/12/25 12:32 01/12/25 11:38 01/12/25 07:41 01/11/25 22:27 01/11/25 19:27 01/11/25 17:26 Pain Intensity Left Knee: Pain Intensity: 4 Transfer of Care Handoff Completed per policy Notes Mental Status: alert / awake / arousable Patient Amnestic to Procedure: Yes Nausea / Vomiting: adequately controlled Pain: adequately controlled Airway Patency, RR, SpO2: stable & adequate BP & HR: stable & adequate Hydration State: stable & adequate Anesthetic Complications: no major complications apparent
[2025-01-12] MEDS ORDERED: HYDROmorphone INJ 0.5 MG/0.5 ML SYR IV PRN (17:28)
[2025-01-12] MEDS ORDERED: ALUMINUM/MAGNESIUM SUSP 30 ML UDC PO PRN (17:28)
[2025-01-12] MEDS ORDERED: NALOXONE HCL 0.4 MG/1 ML VIAL/CARP IV PRN (17:28)
[2025-01-12] MEDS ORDERED: ONDANSETRON INJ 2 MG/ML 2 ML VIAL IV PRN (17:28)
[2025-01-12] MEDS ORDERED: METOCLOPRAMIDE HCL INJ 5 MG/ML 2 ML VIAL IV PRN (17:28)
[2025-01-12] MEDS ORDERED: TRIAMCINOLONE ACET 0.1% CR 15 GM TUBE TOP PRN (17:28)
[2025-01-12] MEDS ORDERED: MAGNESIUM HYDROXIDE SUSP 30 ML UDC PO PRN (17:28)
--- NOTE | 2025-01-12 17:28 | XRay Report ---
2 views of the left knee are submitted for review. Comparison is made to the prior examination dated 09/20/2018 Findings: No fracture is seen. There is a left knee total arthroplasty in expected position. There is no definite sign of infection or loosening. No other osseous abnormality is identified. There are surgical skin thuy. There is air within the joint space, likely due to recent surgery Impression: New left knee replacement ACT 112: Positive. There are findi Electronically signed by Naldo Ortiz 01-12-2025 5:28 PM
[2025-01-12] MEDS: TRANEXAMIC ACID / 0.7% NACL 1000MG/100ML BAG IV ONE (17:30)
--- NOTE | 2025-01-12 17:47 | Electrocardiogram Report ---
Test Reason : Blood Pressure : */* mmHG Vent. Rate : 88 BPM Atrial Rate : 88 BPM P-R Int : 138 ms QRS Dur : 70 ms QT Int : 362 ms P-R-T Axes : 23 -14 37 degrees QTcB Int : 438 ms Normal sinus rhythm Low voltage QRS Borderline ECG When compared with ECG of 03-Apr-2019 12:30, No significant change was found Confirmed by Josiah Foley ([id number]) on 01/12/2025 5:46:54 PM Referred By: Sukh Azar Confirmed By: Josiah Foley
[2025-01-12] MEDS: SODIUM CHLORIDE 0.9% 1,000 ML IV SCH (17:52)
[2025-01-12] MEDS: KETOROLAC TROMETHAMINE 15 MG/ML VIAL IV SCH (17:57)
[2025-01-12] MEDS: ASCORBIC ACID 500 MG TAB PO SCH (18:13)
--- NOTE | 2025-01-12 19:19 | Hospitalist Progress Note ---
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 Planned for revision tomorrow AM by Dr. Azar. # Dislocation of L knee hx remote TKA - underwent revision TKA by Dr. Azar 01/12 -mildly tachycardic postop -got dose of dexamethasone periop -pain control low dose IV hydromorphone, low dose oxycodone, acetaminophen, cyclobenzaprine PRN -AM CBC BMP -bid ASA DVT ppx -PT/OT -given baseline frailty and history of cerebellar ataxia anticipate she may need SNF rehab # mild CAD with recent NSTEMI and trigger not clear. Potentially myocardial demand ischemia related to pulmonary issue? Had COVID about a month prior to that. Echo with normal EF, no rwmas. Had coronary angiography with only mild nonobstructive CAD. -EKG was basically normal -continue statin -she says she is not on an antiplatelet but according to DC summary from [facility] she should be on daily ASA 81 mg - currently bid for DVT ppx # mild persistent asthma / chronic cough -not in exacerbation -continue trelegy equivalent and prn albuterol -[facility] CXR noted increased interstitial markings. Crackles on exam and could have ILD. Try to obtain report of CTA done in ED last month. # cerebrovascular disease -continue statin, ASA # chronic hypotension - continue midodrine # mood disorder - depression. Stable -continue venlafaxine, aripiprazole, bupropion, trazodone # ABDIRASHID intolerant of CPAP - caution with sedating medications especially opioids DVT ppx - SCD tonight, postop per ortho Admission and Anticipated Discharge Date Admission Date: January 11, 2025 Subjective seen preop in room with . L knee painful and desiring pain med at this time - RN brought in med. Other than that, c/o chronic cough no dyspnea, CP, nausea Physical Exam 2 Physical Exam: Last 24h vitals reviewed GEN: no acute distress, sitting in bed exam unchanged 01/12: HEENT: pupils equal, sclerae anicteric, moist MM RESP: normal WOB, significant kyphosis, posterior crackles CV: reg no mrg ABD: soft/nt/nd +BT : no dupree SKIN: warm and dry, no generalized rashes EXT: wwp and no edema. L leg is in immobilizer splint NEURO: AOx person, place, and situation though mixes up a few recent details. Face symmetric, speech normal, moves 4 ext spontaneously and equally Results & Data Results & Data Vital Signs (Past 12 Hours) Vital Signs Temp Pulse Pulse Resp BP Pulse Ox O2 Del Method 01/12/25 18:20 36.0 C L 95 H 18 120/70 100 Nasal Cannula 01/12/25 17:50 95 H 16 125/74 95 Nasal Cannula 01/12/25 17:20 36.8 C 99 H 16 129/72 99 Nasal Cannula 01/12/25 17:05 36.4 C L 96 H 18 137/63 96 Nasal Cannula 01/12/25 16:55 96 H 16 138/64 97 Nasal Cannula 01/12/25 16:45 100 H 20 146/68 H 95 Room Air 01/12/25 16:35 99 H 15 111/71 99 Oxymask 01/12/25 16:25 36.7 C 108 H 14 115/96 94 Oxymask 01/12/25 12:32 37 C 85 20 98/56 L 92 Room Air 01/12/25 11:38 36.7 C 81 14 111/62 96 Room Air 01/12/25 07:41 36.7 C 83 14 101/59 L 93 Room Air O2 Flow Rate 01/12/25 18:20 2 01/12/25 17:50 2 01/12/25 17:20 2 01/12/25 17:05 2 01/12/25 16:55 2 01/12/25 16:45 01/12/25 16:35 8 01/12/25 16:25 8 01/12/25 12:32 01/12/25 11:38 01/12/25 07:41 Laboratory Results 01/11/25 19:52 01/11/25 19:52 personally reviewed EKG tracing - low voltage, otherwise normal PG Care Time/CCT Total # of Minutes Spent Total Time Spent with Patient: Total time spent is greater than 50% in coordination of care (as documented) at patient's floor/unit and/or counseling patient: Coding Level of Care Code 02185 SUB INP/OBS CARE MIN Diagnoses Knee dislocation S83.106A Esophageal dysmotility K22.4 Cerebrovascular disease I67.9 Sleep apnea G47.30 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
[2025-01-12] MEDS: DOCUSATE SODIUM 100 MG CAP PO SCH (20:12)
[2025-01-12] MEDS: CALCIUM CARBONATE 500 MG CHEWABLE TAB PO SCH (20:12)
[2025-01-12] MEDS: FERROUS SULFATE 325 MG TAB PO SCH (20:12)
[2025-01-12] MEDS: SENNA 8.6 MG TAB PO SCH (20:12)
[2025-01-12] MEDS: ASPIRIN 81 MG ECTAB PO SCH (20:13)
[2025-01-12] MEDS: CHOLECALCIFEROL 25 MCG (1000 UNITS) TAB PO SCH (20:13)
[2025-01-12] MEDS ORDERED: FERROUS SULFATE 325 MG TAB PO SCH (21:00)
[2025-01-12] MEDS: ACETAMINOPHEN 500 MG TAB PO SCH (22:13)
[2025-01-12] MEDS: TRANEXAMIC ACID / 0.7% NACL 1,000 MG/100 ML BAG IV SCH (22:13)
[2025-01-13 06:31] LABS: Hematocrit (blood only) 35.2 % (37.0-47.0); Hemoglobin 10.9 g/dl (12.0-16.0); Mean Corpuscular Hemoglobin 29.2 pg (25.0-34.0); Mean Corpuscular Volume 94.4 fL (80.0-100.0); Platelet Count 151 K/uL (130-400); RDW Standard Deviation 44.2 fL (36.4-46.3); Red Blood Count 3.73 M/uL (4.20-5.40); White Blood Count 9.16 K/ul (4.8-10.8)
[2025-01-13 07:13] LABS: Anion Gap 5.0 (3-11); Blood Urea Nitrogen 12.0 mg/dl (6-23); Calcium 8.3 mg/dl (8.6-10.3); Carbon Dioxide 28.0 mmol/L (21-32); Chloride 107.0 mmol/L (98-107); Creatinine Clr Calc Pharmacy 41.2 ml/min; Glucose 76.0 mg/dl (70-99(Fasting)); Potassium 4.5 mmol/L (3.5-5.1); Sodium 140.0 mmol/L (136-145)
--- NOTE | 2025-01-13 07:25 | Orthopedic Progress Note ---
Date of Service January 13, 2025 Assessment & Plan (1) Status post revision of total replacement of left knee: Plan: 84-year-old frail female postop day 1 from a revision of a partial medial full knee replacement doing pretty well. Pain is controlled. She is neurologically intact. I do think she benefit from a rehab stay. Plan: 1. DVT prophylaxis including thigh-high teds, SCDs, aspirin twice a day. 2. PT/OT. Weight-bear as Toller. Left total knee protocol. 3. Pain control. Doing well with current pain regimen. 4. Medical management as per the medicine service. 5. Disposition. Discussed with the patient and her family she has multiple medical problems and multiple health issues and would benefit from a rehab stay. Numbers. They are hoping that she can go to [facility] for rehab stay. (2) Prosthetic knee implant failure: Admission and Anticipated Discharge Date Admission Date: January 11, 2025 Subjective 84-year-old female postop day 1 from a revision total knee arthroplasty from a Uni medial total knee. She was pretty painful last night but doing quite a bit better this morning. No new complaints. No chest pain or shortness of breath. Not feeling dizzy or lightheaded. She did apparently lose a tooth last evening at some point. Physical Exam Physical Exam: Physical examination is a pleasant elderly female. As she is lying in bed looks comfortable. Awake alert and oriented. Examination of the left leg reveals a dressing be clean dry and intact. She can dorsiflex and plantarflex her foot appropriately. She is neurologically intact. Results & Data Vital Signs (Past 12 Hours) Vital Signs Temp Pulse Resp BP Pulse Ox O2 Del Method O2 Flow Rate 01/13/25 07:00 36.8 C 90 16 121/60 92 Room Air 01/13/25 03:30 36.9 C 91 H 17 124/79 96 Room Air 01/12/25 22:21 36.6 C 88 17 118/70 97 Nasal Cannula 2 01/12/25 20:25 36.8 C 90 16 120/68 96 Nasal Cannula Laboratory Results Hemoglobin is 10.9. Macro 35.2. Electrolytes are stable.
[2025-01-13] MEDS: dexAMETHasone 10 MG in SYRINGE 0 ML IV SCH (07:43)
[2025-01-13] MEDS ORDERED: NON-FORMULARY MEDICATION (Multivitamin [Daily-Vite] Tablet) PO SCH (09:00)
[2025-01-13] MEDS ORDERED: NON-FORMULARY MEDICATION (Fluticasone-Umeclidin-Vilanter [Trelegy Ellipta] 100-62.5-25 mcg INH SCH (09:00)
[2025-01-13] MEDS: MULTIVITAMIN TAB PO SCH (09:02)
[2025-01-13] MEDS: THIAMINE HCL 100 MG TAB PO SCH (09:02)
[2025-01-13] MEDS: CETIRIZINE HCL 10 MG TABLET PO SCH (09:02)
--- NOTE | 2025-01-13 12:14 | Communication Note ---
Date of Service: January 13, 2025 called by pt RN. Pt stated her left UCI cap fell out and is missing.I discharged pt from PACU last evening and was speaking with pt and did not notice this cap missing. I did not appreciate any trauma to airway during LMA insertion.
--- NOTE | 2025-01-13 17:42 | Hospitalist Progress Note ---
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 # Dislocation of L knee hx remote TKA - underwent revision TKA by Dr. Azar 01/12 -mildly tachycardic postop, resolved -got dose of dexamethasone periop -pain control low dose IV hydromorphone, low dose oxycodone, acetaminophen, cyclobenzaprine PRN -CBC BMP reviewed - Hg adequate at 10.9 and Cr stable at 0.7, lytes normal -bid ASA DVT ppx -PT/OT -given baseline frailty and history of cerebellar ataxia anticipate she may need SNF rehab # mild CAD with recent NSTEMI within the past 4 weeks, occurring on 12/22/24 and trigger not clear. Potentially myocardial demand ischemia related to pulmonary issue? Had COVID about a month prior to that. Echo with normal EF, no rwmas. Had coronary angiography with only mild nonobstructive CAD at [facility]. -continue statin -according to DC summary from [facility] she should be on daily ASA 81 mg - currently bid for DVT ppx # mild persistent asthma / chronic cough -not in exacerbation -continue trelegy equivalent and prn albuterol -trial of benzonatate -[facility] CXR noted increased interstitial markings. Crackles on exam and could have ILD. Try to obtain report of CTA done in ED last month. # cerebrovascular disease -continue statin, ASA # chronic hypotension - continue midodrine # mood disorder - depression. Stable -continue venlafaxine, aripiprazole, bupropion, trazodone # ABDIRASHID intolerant of CPAP - caution with sedating medications especially opioids DVT ppx - ASA bid Admission and Anticipated Discharge Date Admission Date: January 11, 2025 Subjective Doing well. Wants to try antitussive for chronic cough L knee pain much improved after surgery controlled with current meds no dyspnea or CP Physical Exam 2 Physical Exam: Last 24h vitals reviewed GEN: sitting in chair HEENT: pupils equal, sclerae anicteric, moist MM RESP: normal WOB, occasional dry coughing CV: def ABD: ND : no dupree SKIN: warm and dry, no generalized rashes EXT: wwp and no edema. L leg is dressed in YOMI wrap NEURO: AOx person, place, and situation though mixes up a few recent details and forgetful. Face symmetric, speech normal, moves 4 ext spontaneously and equally Results & Data Results & Data Vital Signs (Past 12 Hours) Vital Signs Temp Pulse Resp BP Pulse Ox O2 Del Method 01/13/25 14:50 36.5 C 80 14 105/61 92 Room Air 01/13/25 11:00 36.8 C 86 16 110/65 92 Room Air 01/13/25 08:00 Room Air 01/13/25 07:00 36.8 C 90 16 121/60 92 Room Air Laboratory Results 01/13/25 06:10 01/13/25 06:10 PG Care Time/CCT Total # of Minutes Spent Total Time Spent with Patient: Total time spent is greater than 50% in coordination of care (as documented) at patient's floor/unit and/or counseling patient: Coding Level of Care Code 79609 SUB INP/OBS CARE 2/35MIN Diagnoses Knee dislocation S83.106A Esophageal dysmotility K22.4 Cerebrovascular disease I67.9 Sleep apnea G47.30 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
[2025-01-13] MEDS: BENZONATATE 100 MG CAPSULE PO SCH (20:14)
--- NOTE | 2025-01-14 16:33 | Hospitalist Progress Note ---
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 # Dislocation of L knee hx remote TKA - underwent revision TKA by Dr. Azar 01/12 -mildly tachycardic postop, resolved -got dose of dexamethasone periop -pain control low dose oxycodone, acetaminophen, cyclobenzaprine PRN -bid ASA DVT ppx -PT/OT -hoping for rehab at [facility], medically ready for tomorrow # mild CAD with recent NSTEMI within the past 4 weeks, occurring on 12/22/24 and trigger not clear. Potentially myocardial demand ischemia related to pulmonary issue? Had COVID about a month prior to that. Echo with normal EF, no rwmas. Had coronary angiography with only mild nonobstructive CAD at [facility]. -continue statin -according to DC summary from [facility] she should be on daily ASA 81 mg - currently bid for DVT ppx # mild persistent asthma / chronic cough -not in exacerbation -continue trelegy equivalent and prn albuterol -trial of benzonatate - slight benefit at night? increase to 200 mg and schedule at -[facility] CXR noted increased interstitial markings. Crackles on exam and could have ILD. Try to obtain report of CTA done in ED last month. # cerebrovascular disease -continue statin, ASA # chronic hypotension - continue midodrine # mood disorder - depression. Stable -continue venlafaxine, aripiprazole, bupropion, trazodone # ABDIRASHID intolerant of CPAP - caution with sedating medications especially opioids DVT ppx - ASA bid Admission and Anticipated Discharge Date Admission Date: January 11, 2025 Subjective Doing well. Walking steps with PT and up in chair. L knee pain well controlled. Cough may be slightly better on tessalon but nothing dramatic, may have slept better Physical Exam 2 Physical Exam: Last 24h vitals reviewed GEN: sitting in chair HEENT: pupils equal, sclerae anicteric, moist MM RESP: normal WOB, bilateral posterior crackles CV: reg no mrg ABD: ND : no dupree SKIN: warm and dry, no generalized rashes EXT: wwp and no edema. L leg is dressed in YOMI wrap NEURO: AOx person, place, and situation though mixes up a few recent details and forgetful. Face symmetric, speech normal, moves 4 ext spontaneously and equally Results & Data Results & Data Vital Signs (Past 12 Hours) Vital Signs Temp Pulse Resp BP Pulse Ox O2 Del Method 01/14/25 14:55 36.5 C 78 18 96/61 L 96 Room Air 01/14/25 08:39 Room Air 01/14/25 07:28 36.6 C 77 16 104/67 93 Room Air Laboratory Results 01/13/25 06:10 01/13/25 06:10 PG Care Time/CCT Total # of Minutes Spent Total Time Spent with Patient: Total time spent is greater than 50% in coordination of care (as documented) at patient's floor/unit and/or counseling patient: Coding Level of Care Code 35029 SUB INP/OBS CARE 2/35MIN Diagnoses Knee dislocation S83.106A Esophageal dysmotility K22.4 Cerebrovascular disease I67.9 Sleep apnea G47.30 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
[2025-01-14 19:33] VITALS: PULSE 85; RESP 16; TEMP 98.6
[2025-01-14] MEDS: BENZONATATE 100 MG CAPSULE PO SCH (20:45)
[2025-01-15 07:30] VITALS: BP 107/62; O2SAT 95
--- NOTE | 2025-01-15 07:42 | Orthopedic Progress Note ---
Date of Service January 15, 2025 Assessment & Plan (1) Status post revision of total replacement of left knee: * Continue Current Treatment * Recommend continued PT for mobilization * Weight bearing status: WBAT * Daily treatment: Physical Therapy/ Occupational Therapy per protocol * Pain control * DVT prophylaxis per primary team * Disposition: Rehab * F/u Dr Azar team 2-3 weeks for staple removal * Remainder care per primary team * Stable for discharge from ortho standpoint Subjective .Active Problems: S/p L revision TKA POD 3 84 y/o female s/p left revision TKA. Doing well overall, pain managed and improved function. Denies fever/chills, chest pain/SOB, nausea/vomiting. Otherwise no complaints. Reports improved function with PT/OT over the weekend. Review of Systems All systems reviewed & are unremarkable except as noted in HPI & below. Physical Exam . * General: Alert and oriented, no acute distress * Constitutional: well-developed, well-nourished. * Respiratory: Normal respiratory effort, no distress * Gastrointestinal: No tenderness to palpation, no rigidity or guarding. * Skin: No rash or lesion. * Neurologic: Grossly normal * Musculoskeletal: Left knee surgical dressing with scant dried drainage from distal incision, not removed for exam. Otherwise no obvious deformity or overlying skin changes RLE. Diffuse TTP distal thigh and knee region. Otherwise no specific tenderness of proximal thigh, lower leg, foot/ankle. AROM knee flexion 100 degrees. AROM foot/ankle intact. Sensation intact plantar/dorsal foot. Brisk capillary refill. Results & Data Results & Data Laboratory Results . Diagnostic Findings . PG Care Time/CCT Total # of Minutes Spent Total Time Spent with Patient: Total time spent is greater than 50% in coordination of care (as documented) at patient's floor/unit and/or counseling patient: Coding Level of Care Code 22383 Post Operative Follow-Up Diagnoses Status post revision of total replacement of left knee Z96.652
--- NOTE | 2025-01-15 08:25 | Discharge Summary ---
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 # Dislocation of L knee hx remote TKA - underwent revision TKA by Dr. Azar 01/12 -mildly tachycardic postop, resolved -got dose of dexamethasone periop -pain control low dose oxycodone, acetaminophen, cyclobenzaprine PRN -bid ASA DVT ppx x 6 weeks -PT/OT -rehab at [facility] -F/U Dr. Azar team in 2-3 weeks for staple removal # mild CAD with recent NSTEMI within the past 4 weeks, occurring on 12/22/24 and trigger not clear. Potentially myocardial demand ischemia related to pulmonary issue? Had COVID about a month prior to that. Echo with normal EF, no rwmas. Had coronary angiography with only mild nonobstructive CAD at [facility]. -continue statin -according to DC summary from [facility] she should be on daily ASA 81 mg - currently bid for DVT ppx -remained asymptomatic and tolerated surgery very well # mild persistent asthma / chronic cough -not in exacerbation -continue trelegy equivalent and prn albuterol -trial of benzonatate 200 mg HS - slight benefit at night? -[facility] CXR noted increased interstitial markings. Crackles on exam and could have ILD. Eventually try to obtain report of CTA done in ED last month. Weekend hit and I did not get copy of the report. # cerebrovascular disease -continue statin, ASA # chronic hypotension - continue midodrine # mood disorder - depression. Stable -continue venlafaxine, aripiprazole, bupropion, trazodone # ABDIRASHID intolerant of CPAP - caution with sedating medications especially opioids # cognitive impairment - observed to be forgetful and mix up details, though oriented to place and situation Notes For Next Care Provider Needed L TKA revision, tolerated well For cough - poss ILD based on exam? appears she had outpatient CTA at [facility] recently, I could not obtain copy of report Medication Changes From Visit ASA bid for 6 weeks then resume daily for CAD Admission HPI Per Admitting Provider 84 y/o with L TKA at least six years ago. Two days ago was sitting in her recliner chair cleaning up some things on nearby tables, rolled to right seated in recliner and felt L knee pop. L knee has been extremely painful since and unable to ambulate. Sounds like she was seen in an ED yesterday and knee immobilizer was placed. Saw ortho Dr. Azar in office this AM. Found to have dislocation of L TKA. Direct admission, planned for revision tomorrow AM. She has chronic cough, reviewed last pulmonary note by Dr. Romero in 2022. He states she has had normal PFTs and that its upper airway cough syndrome. She says that she subsequently had removal of some vocal chord nodules apx two years ago. Chronic cough continues. She is on inhalers for mild asthma and symptoms are at her baseline. She has had esophageal motility problems and dysphagia, had Schatzki's ring dilated here on EGD in October. Sometimes difficulty with certain pills. I also reviewed scanned records from [facility]: A month ago she presented to ED with cough and dyspnea and found to have NSTEMI. Tn increased to max of 600s. No EKG changes. CTA was negative for PE. She was started on heparin drip and transferred to [facility]. She had Echo with normal EF 65-70% and no rwma's. She underwent coronary angiography on 12/25. I reviewed the cath report and she had mild nonobstructive diffuse CAD, no PCI was necessary. The most significant lesion was prox RCA of 40% and she had a normal LVEDP. She is quite sedentary currently. She had an episode of about 10 minutes of chest pain that radiated to throat and shoulders the other day, after the knee injury. She never had chest pain before or since. Discharge Exam Last 24h vitals reviewed GEN: sitting in chair and looks good HEENT: pupils equal, sclerae anicteric, moist MM RESP: normal WOB, bilateral posterior crackles unchanged CV: reg no mrg ABD: ND : no durpee SKIN: warm and dry, no generalized rashes EXT: wwp and no edema. L leg is dressed in YOMI wrap NEURO: AOx person, place, and situation though mixes up a few recent details and forgetful. Face symmetric, speech normal, moves 4 ext spontaneously and equally Discharge Plan Discharge Items Patient Disposition: Transfer Inpatient Rehab Fac Reason For Visit: DISLOCATED LEFT KNEE Discharge Diagnosis: Left Knee Replacement Revision Activity: Per Instructions section Weightbearing: Full weightbearing Non-emergency contact: Surgeon Call non-emergency contact if: you have any medication questions Follow-up/Referrals: Clara Hairston PA-C [Primary Care Provider] - Sukh Azar MD [Physician] - (Orthopedic follow-up 2-3 weeks from surgery.) Diet: Regular Addtl Attending Provider Instructions: ACTIVITY RECOMMENDATIONS: Diet: * You may resume previous diet. Physical Therapy: * You will go to physical therapy three times each week for four to six weeks after your surgery in order to regain your knee range of motion and to retrain your knee to work properly. * It is just as important to make sure you are getting your knee perfectly straight as it is to regain your knee bend. * Taking a pain pill an hour before therapy can help you have a more productive and comfortable therapy session. Home Exercise: * You were shown a series of exercises (heel props, heel slides, etc.) in the hospital. Do these exercises three to four times each day including the exercises you were shown in physical therapy. Walking: * Get up and walk several times each day. For the first four weeks, try not to stand or walk for more than one hour at a time. If you do stand or walk for more than one hour, you will not hurt anything, but your knee and leg will likely swell. * As you feel comfortable, you may change from the walker or crutches to a cane and then to independent walking. MEDICATIONS: New Medicine: * You will likely be taking one or more of these medications: 1. Oxycodone - A quick and shorter-acting pain medication. Take one to two tablets every six hours to lessen your pain. 2. Aspirin - Thins your blood to lessen the chance of forming a blood clot. * The most common side effects of pain medicine and iron are nausea and constipation. If nausea or constipation is too much of a problem or if you have any questions about your new medicines or doses, call [facility] at . We will try to help you manage these issues. "VERY IMPORTANT TO READ AND REVIEW" Pain: * The immediate post-operative period after knee replacement surgery is often quite painful. * You are given a prescription for pain medicine. You should take it, as directed, when you need it, especially before physical therapy and before going to bed. Pain that interferes with sleep is very common and can last several months. * You will likely need pain medicine for the first four to six weeks. It will not stop all of the pain. The pain will lessen and as you feel better, you may change to milder pain medicine such as Tylenol. * The most common side effects of pain medicine are nausea and constipation, so don't take more than you need. SPECIAL CARE INSTRUCTIONS: TEDs/Elastic Stockings: * The white elastic stockings help limit swelling and prevent blood clots from forming in your legs. The more you wear them, the more they work. * Wear them for six weeks after knee replacement surgery and four weeks after partial knee replacement. Incision Site Care: * Remove dressing postoperative day 2 and then shower. Keep direct shower pressure off the incision site. * After showering, cover thuy with dry gauze and change daily or more frequently if the dressing is getting saturated with drainage. * Use the MARSHA stockings to hold dressing in place. DO NOT apply tape on the skin. * May completely stop using bandage if wound is dry and no drainage * Thuy are removed between 2 and 3 weeks post-op. If your follow-up appointment is made before 2 weeks, please have your appointment re- scheduled. It is too early to remove the thuy. Prevention of Infection: * Take antibiotics one hour before any dental cleaning, dental work, urological procedure, gastrointestinal procedure or any invasive surgery in order to prevent your new joint from getting infected. * You may get the antibiotics from the doctor performing the procedure or you may call our office at [phone] before and we will call in a prescription to the pharmacy of your choice. Things to Watch For: * Drainage from the incision site that occurs more than one week after your surgery. * Severely increased knee/leg pain or swelling. * Increased redness at the incision site. * Fever above 102 degrees Fahrenheit. * Unusual chest pain or shortness of breath. * Unusual pain or burning with urination. Call [facility] at [phone] with any of the above problems or if you have any questions about your medicines or recovery. FOLLOW UP VISIT: Make an appointment to see your doctor for approximately two weeks after surgery for a progress check and staple removal by calling the office at [phone]. Pending Studies at Discharge: No Stand-Alone Forms: My [facility] Skilled Items Patient informed of condition?: Yes DNR: No Discharge Level of Care: Acute rehab Communicable Disease: No Discharge Prognosis: Improving Lines: None Urinary Catheter: No Medications and DC Order Prescriptions: New ferrous sulfate 325 mg (65 mg iron) Tablet,Delayed Release (Dr/Ec) 325 mg PO Q48H Qty: 0 0RF cyclobenzaprine 5 mg Tablet 5 mg PO BID PRN (Reason: muscle spasm) Qty: 30 0RF acetaminophen [Tylenol Extra Strength] 500 mg Tablet 1,000 mg PO Q8 Qty: 0 0RF aspirin 81 mg Tablet,Delayed Release (Dr/Ec) 81 mg PO BID Qty: 0 0RF bisacodyl 10 mg Suppository 10 mg DC DAILY PRNQty: 0 0RF oxycodone 5 mg Tablet 5 mg PO Q4H PRN (Reason: pain) Qty: 0 0RF polyethylene glycol 3350 [Miralax] 17 gram Powder In Packet 17 g PO DAILY PRNQty: 0 0RF sennosides [Senna Lax] 8.6 mg Tablet 17.2 mg PO HS Qty: 0 0RF melatonin 3 mg Tablet 3 mg PO HS PRNQty: 0 0RF ascorbic acid (vitamin C) [Vitamin C] 500 mg Tablet 500 mg PO BIDM Qty: 0 0RF benzonatate 100 mg Capsule 200 mg PO HS Qty: 0 0RF Continued (DME) Flutter Valve Device See Rx Instructions .Route Qty: 1 0RF Rx Instructions: As directed cholecalciferol (vitamin D3) 50 mcg (2,000 unit) tablet 1,000 units PO HS trazodone 100 mg tablet 100 mg PO HS venlafaxine 150 mg capsule,extended release 24hr 150 mg PO QAM Trelegy Ellipta 100-62.5-25 mcg blister with device 1 inh inhalation DAILY Qty: 28 2RF midodrine 2.5 mg tablet 2.5 mg PO TID Rx Instructions: to take in addition to 5mg dose TID. pantoprazole 20 mg tablet,delayed release (DR/EC) 20 mg PO BID Qty: 90 3RF midodrine 5 mg Tablet 5 mg PO TID Rx Instructions: to take in addition to 2.5mg dose TID. atorvastatin 10 mg tablet 10 mg PO HS bupropion HCl 100 mg tablet sustained-release 12 hr 100 mg PO HS cetirizine 10 mg Tablet 10 mg PO QAM thiamine HCl (vitamin B1) 100 mg Tablet 100 mg PO QAM triamcinolone acetonide 0.1 % Cream 1 applic TOPICAL BID PRN (Reason: erythema) aripiprazole 2 mg tablet 2 mg PO QAM albuterol sulfate 90 mcg/actuation HFA aerosol inhaler 2 inh inhalation Q6H PRN (Reason: sob/wheezing) calcium carbonate [Calcium 600] 600 mg calcium (1,500 mg) Tablet 600 mg PO HS multivitamin [Daily-Jorgito] Tablet 1 tab PO DAILY Held tramadol 50 mg Tablet 50 mg PO Q8H PRN (Reason: Pain) Hold Instructions: resume once no longer taking oxycodone aspirin 81 mg Tablet,Delayed Release (Dr/Ec) 81 mg PO DAILY Hold Instructions: aspirin 2x a day for 6 weeks for knee surgery, then resume once daily dosing Discontinued acetaminophen 500 mg Tablet 1,000 mg PO Q6H PRN (Reason: pain/fever) ferrous sulfate 325 mg (65 mg iron) Tablet 325 mg PO BID Discharge Orders: Discharge Order (Routine); Ordered 01/15/25 Ordered By: Mona Guillaume Admission Data Admit Date/Time: 01/11/25 18:25 Attending Provider: Mona Guillaume Admit Provider: Leroy Lu Primary Care Provider: Clara Hairston Other Providers: Sukh Azar; [facility] Other Interventions: Discharge Summary Assessment (RN) Last Done: 01/15/25 12:25 Hospital Stay Data Consultations 01/11/25 18:25 Consult Orthopedic Surgery Routine 01/13/25 04:31 Consult Patient Rep [Consult Patient Services] Routine Procedures Performed Operation Date: 01/12/25 12:30 Actual Procedures p Left Total Knee Revision - Sukh Azar MD Diagnostic Imagining Performed 01/12/25 13:00 US - OR guided needle placemen Stat Pending Results Patient Have Any Pending Studies at Discharge: No Discharge Instructions Given to Patient (Per Discharging Provider) ACTIVITY RECOMMENDATIONS: Diet: * You may resume previous diet. Physical Therapy: * You will go to physical therapy three times each week for four to six weeks after your surgery in order to regain your knee range of motion and to retrain your knee to work properly. * It is just as important to make sure you are getting your knee perfectly straight as it is to regain your knee bend. * Taking a pain pill an hour before therapy can help you have a more productive and comfortable therapy session. Home Exercise: * You were shown a series of exercises (heel props, heel slides, etc.) in the hospital. Do these exercises three to four times each day including the exercises you were shown in physical therapy. Walking: * Get up and walk several times each day. For the first four weeks, try not to stand or walk for more than one hour at a time. If you do stand or walk for more than one hour, you will not hurt anything, but your knee and leg will likely swell. * As you feel comfortable, you may change from the walker or crutches to a cane and then to independent walking. MEDICATIONS: New Medicine: * You will likely be taking one or more of these medications: 1. Oxycodone - A quick and shorter-acting pain medication. Take one to two tablets every six hours to lessen your pain. 2. Aspirin - Thins your blood to lessen the chance of forming a blood clot. * The most common side effects of pain medicine and iron are nausea and constipation. If nausea or constipation is too much of a problem or if you have any questions about your new medicines or doses, call [facility] at . We will try to help you manage these issues. "VERY IMPORTANT TO READ AND REVIEW" Pain: * The immediate post-operative period after knee replacement surgery is often quite painful. * You are given a prescription for pain medicine. You should take it, as directed, when you need it, especially before physical therapy and before going to bed. Pain that interferes with sleep is very common and can last several months. * You will likely need pain medicine for the first four to six weeks. It will not stop all of the pain. The pain will lessen and as you feel better, you may change to milder pain medicine such as Tylenol. * The most common side effects of pain medicine are nausea and constipation, so don't take more than you need. SPECIAL CARE INSTRUCTIONS: TEDs/Elastic Stockings: * The white elastic stockings help limit swelling and prevent blood clots from forming in your legs. The more you wear them, the more they work. * Wear them for six weeks after knee replacement surgery and four weeks after partial knee replacement. Incision Site Care: * Remove dressing postoperative day 2 and then shower. Keep direct shower pressure off the incision site. * After showering, cover thuy with dry gauze and change daily or more frequently if the dressing is getting saturated with drainage. * Use the MARSHA stockings to hold dressing in place. DO NOT apply tape on the skin. * May completely stop using bandage if wound is dry and no drainage * Irene are removed between 2 and 3 weeks post-op. If your follow-up appointment is made before 2 weeks, please have your appointment re- scheduled. It is too early to remove the thuy. Prevention of Infection: * Take antibiotics one hour before any dental cleaning, dental work, urological procedure, gastrointestinal procedure or any invasive surgery in order to prevent your new joint from getting infected. * You may get the antibiotics from the doctor performing the procedure or you may call our office at [phone] before and we will call in a prescription to the pharmacy of your choice. Things to Watch For: * Drainage from the incision site that occurs more than one week after your surgery. * Severely increased knee/leg pain or swelling. * Increased redness at the incision site. * Fever above 102 degrees Fahrenheit. * Unusual chest pain or shortness of breath. * Unusual pain or burning with urination. Call [facility] at [phone] with any of the above problems or if you have any questions about your medicines or recovery. FOLLOW UP VISIT: Make an appointment to see your doctor for approximately two weeks after surgery for a progress check and staple removal by calling the office at [phone]. 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
[2025-01-15] MEDS: POLYETHYLENE (MIRALAX) 17 GM PACK PO PRN (08:35)
== END 2025-01-15 14:16 | DRG 466 ==
LOC: 3N 15:54 → SUATTDRO 15:54